=== PATIENT | male | born 1985 | race Caucasian/White ===

== ENCOUNTER 2022-06-08 10:01 | Emergency (ER) | payer BC, SELFPAY ==
[2022-06-08] VITALS (9 sets, daily range): BP systolic 159–168; BP diastolic 95–109; PULSE 73–78; RESP 16–18; TEMP 37; O2SAT 99–100
--- NOTE | ~2022-06-08 | XR_ITS ---
EXAMINATION: XR foot LT min 3V DATE: 06/08/2022 10:43 INDICATION: Left foot pain and ulcer. TECHNIQUE: 4 views of left foot were obtained. COMPARISON: None. FINDINGS: Bone alignment is normal. No fracture. 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 There are enthesophytes at the posterior and plantar as pects of calcaneal tuberosity. There is soft tissue swelling of the forefoot, worst at fifth metatars ophalangeal joint. IMPRESSION: 1. No evidence of osteomyelitis. Reviewed, dictated and finalized at location A.
--- NOTE | 2022-06-08 10:30 | ED.GENADULT ---
HPI - General Adult General Chief complaint: Wound/Laceration Stated complaint: ulcer to foot/infected Time Seen by Provider: 06/08/22 10:05 History of Present Illness HPI narrative: 36-year-old male history of CHF sleep apnea presents to the emergency room for evaluation of a wound to his left foot. Patient states that he has a possibly infected corn to the plantar surface of his left foot below his fifth toe that he has been managing with gentamicin ointment for several days. States he woke up this morning and noticed a painful and red area to the dorsal surface of his foot with centralized indurated abscess. Denies any discharge or drainage. Denies fevers. Was seen at urgent care earlier today, and was told to come to the emergency room for further evaluation. Related Data Home Medications Medication Instructions Recorded Confirmed acetaminophen 325 mg capsule 650 mg PO Q6H PRN 07/13/19 albuterol sulfate 4 mg tablet 4 mg PO QID 07/13/19 Allergies Allergy/AdvReac Type Severity Reaction Status Date / Time No Known Allergies Allergy Unknown Verified 06/08/22 10:45 Review of Systems Review of Systems: CONSTITUTIONAL: Denies fever, chills, or sweats. EYES: Denies visual changes, redness, or discharge. ENT: Denies rhinorrhea, congestion, sore throat, or otalgia. CARDIOVASCULAR: Denies chest pain, palpitations, or edema. RESPIRATORY: Denies cough or dyspnea. GASTROINTESTINAL: Denies abdominal pain, nausea, vomiting, or diarrhea. GENITOURINARY: Denies dysuria or hematuria. SKIN: Denies rash or itching. MUSCULOSKELETAL: See HPI NEUROLOGIC: Denies headache, numbness, dizziness, or weakness. PSYCHIATRIC: Denies anxiety or depression. [facility] Past Medical History Medical History (Updated 06/08/22 @ 11:11 by Chad Reed APRN) CHF (congestive heart failure) DVT prophylaxis Sleep apnea Social History Social History Smoking status: Former smoker Smoking end date: 03/11/17 Alcohol intake: never Exam Narrative: GENERAL: Well-appearing, well-nourished, no physical limitations, and in no acute distress. HEAD: Normocephalic, atraumatic. EYES: Conjunctivae normal, PERRLA and EOMI. ENT: External nose normal, Nares clear, no rhinorrhea or epistaxis. Mucous membranes moist. Oropharynx without tonsillar hypertrophy exudate or other lesions. External ears normal, bilateral TMs normal bilaterally NECK: Supple. No meningeal signs. No adenopathy or masses. No carotid bruits or JVD CHEST: Clear to auscultation. No respiratory distress. No wheezes rales or rhonchi. No tenderness. HEART: Regular rate and rhythm. No murmur heard. Normal peripheral pulses. ABDOMEN: Soft, nontender, nondistended, normal active bowel sounds. : Normal external male/female exam. BACK: No CVA tenderness; No cervical/thoracic/lumbar tenderness, step-offs, bony abnormality; FROM EXTREMITIES: Left foot: Indurated area on the dorsal surface over the fifth MTP joint with surrounding erythema and swelling that extends to the midfoot SKIN: Warm, dry, no rash. No noted wounds NEURO: No focal deficits. Alert and oriented x3. MAEW. CN's II-XI intact bilaterally, normal gait PSYCH: Cooperative. Normal mood and affect. Course Vital Signs Vital signs: Vital Signs Temperature 37.0 C 06/08/22 10:21 Pulse Rate 78 06/08/22 10:21 Respiratory Rate 16 06/08/22 10:21 Blood Pressure 168/103 H 06/08/22 10:21 Pulse Oximetry 100 06/08/22 10:21 Oxygen Delivery Room Air 06/08/22 10:21 Temperature 37.0 C 06/08/22 10:21 Pulse Rate 78 06/08/22 10:21 Respiratory Rate 16 06/08/22 10:21 Blood Pressure 163/109 H 06/08/22 11:17 Pulse Oximetry 99 06/08/22 11:17 Oxygen Delivery Room Air 06/08/22 10:21 Medical Decision Making Vital Signs Vital Signs: Vital Signs Temperature 37.0 C 06/08/22 10:21 Pulse Rate 78 06/08/22 10:21 Respiratory Rate 16 06/08/22 10
[2022-06-08 10:43] LABS: Basophils Percent Auto 0.4 % (0.2-1.2); Eosinophils Absolute Auto 0.1 K/mm3 (0-0.3); Eosinophils Percent Auto 1.3 % (0-4.4); Hematocrit 45.4 % (42.0-52.0); Hemoglobin 15.8 g/dL (14.0-18.0); Immature Granulocyte Absolute 0.02 K/mm3 (0.00-0.031); Immature Granulocyte Percent A 0.3 % (0-0.5); Lymphocytes Absolute Auto 1.95 K/mm3 (0.9-3.2); Lymphocytes Percent Auto 26.1 % (18.3-44.2); Mean Corpuscular HGB Conc 34.8 g/dl (32-36); Mean Corpuscular Hemoglobin 30.3 pg (26-34); Mean Platelet Volume 8.9 fl (7.4-10.4); Monocytes Absolute Auto 0.6 K/mm3 (0.1-0.6); Monocytes Percent Auto 7.9 % (2.6-8.5); Neutrophils Absolute Auto 4.8 K/mm3 (1.3-6.7); Platelet Count Result 265 k/mm3 (150-375); Red Blood Count 5.22 M/mm3 (4.6-6.20); Red Cell Distribution Width 12.8 % (11.5-14.5); White Blood Count 7.5 K/mm3 (4.5-10.0)
[2022-06-08] MEDS: cefTRIAXone 2 GM/NS 100 ML 2 GM/100 ML BAG IVPB (10:57)
[2022-06-08 11:03] LABS: Alanine Aminotransferase 22 U/L (6-50); Albumin Level 4.5 g/dL (3.5-5.1); Alkaline Phosphatase 33 U/L (38-126); Anion Gap 7 mmol/L (8-16); Aspartate Amino Transferase 24 U/L (17-59); Bilirubin,Total 0.8 mg/dL (0.2-1.3); Blood Urea Nitrogen 17 mg/dL (9-20); Calcium 9.2 mg/dL (8.4-10.2); Carbon Dioxide 28 mmol/L (22-30); Chloride 105 mmol/L (98-107); Estimated CRCL calculation 199 ml/min; Estimated Glomerular Filt Rate > 60; Glucose 95 mg/dL (65-110); Potassium 4.1 mmol/L (3.4-5.0); Sodium 140 mmol/L (137-145)
== END 2022-06-08 11:59 | disposition home or self-care (01) ==
PROVIDERS: Emergency Provider Nurse Practitioner Family
DX: L03.116 Cellulitis of left lower limb (principal); I50.9 Heart failure, unspecified; G47.30 Sleep apnea, unspecified; Z86.718 Personal history of other venous thrombosis and embolism
CPT/HCPCS: 36415; 73630; 80053; 83605; 85025; 96365; 99284; J0696

== ENCOUNTER 2022-11-20 10:11 | Outpatient (CLI) | payer BC, SELFPAY ==
[2022-11-20 13:06] LABS: Basophils Percent Auto 0.3 % (0.2-1.2); Eosinophils Absolute Auto 0.1 K/mm3 (0-0.3); Eosinophils Percent Auto 1.7 % (0-4.4); Hematocrit 49.5 % (42.0-52.0); Immature Granulocyte Absolute 0.01 K/mm3 (0.00-0.031); Immature Granulocyte Percent A 0.2 % (0-0.5); Lymphocytes Percent Auto 31.2 % (18.3-44.2); Mean Corpuscular HGB Conc 34.3 g/dl (32-36); Mean Corpuscular Hemoglobin 29.9 pg (26-34); Mean Platelet Volume 9.1 fl (7.4-10.4); Monocytes Absolute Auto 0.9 K/mm3 (0.1-0.6); Monocytes Percent Auto 15.3 % (2.6-8.5); Neutrophils Percent Auto 51.3 % (45.5-73.1); Platelet Count Result 223 k/mm3 (150-375); Red Blood Count 5.69 M/mm3 (4.6-6.20); Red Cell Distribution Width 12.3 % (11.5-14.5); White Blood Count 5.8 K/mm3 (4.5-10.0)
[2022-11-20 13:12] LABS: Alanine Aminotransferase 47 U/L (6-50); Albumin Level 4.6 g/dL (3.5-5.1); Alkaline Phosphatase 32 U/L (38-126); Anion Gap 4 mmol/L (8-16); Aspartate Amino Transferase 51 U/L (17-59); Bilirubin,Total 0.7 mg/dL (0.2-1.3); Blood Urea Nitrogen 15 mg/dL (9-20); Calcium 9.3 mg/dL (8.4-10.2); Carbon Dioxide 33 mmol/L (22-30); Chloride 99 mmol/L (98-107); Cholesterol 169 mg/dL (0-200); Estimated Glomerular Filt Rate > 60; Glucose 78 mg/dL (65-110); HDL Direct 67 mg/dL; Potassium 4.3 mmol/L (3.4-5.0); Sodium 136 mmol/L (137-145); Triglycerides 76 mg/dL (<150)
[2022-11-20 13:23] LABS: LDL Cholesterol Direct 79 mg/dL
[2022-11-20 13:35] LABS: Vitamin D 25 Hydroxy 42.7 ng/mL
== END 2022-11-20 10:12 | disposition home or self-care (01) ==
LOC: ANHGOSHLAB 10:13
PROVIDERS: Visit Provider Family Medicine
DX: Z00.00 Encounter for general adult medical examination without abnormal findings (principal); Z13.220 Encounter for screening for lipoid disorders; I10 Essential (primary) hypertension; E55.9 Vitamin D deficiency, unspecified; E53.8 Deficiency of other specified B group vitamins; I50.9 Heart failure, unspecified
CPT/HCPCS: 36415; 80053; 80061; 82306; 82607; 83735; 84443; 85025

== ENCOUNTER 2023-06-17 10:42 | Outpatient (CLI) | payer BC, SELFPAY ==
--- NOTE | ~2023-06-17 | US_ITS ---
EXAMINATION: US scrotum doppler DATE: 06/17/2023 11:22 INDICATION: Other specified disorders of the male genitalia. Left testicular swelling. TECHNIQUE: Grayscale and Doppler ultrasound images of the testes were obtained. COMPARISON: None. FINDINGS: The right testis measures 4.3 x 2.7 x 2.7 cm. The left testis measures 3.9 x 2.3 x 2.5 cm. There is increased vascular flow to left testis. The right epididymis is normal with normal vascular flow. The left epididymis demonstrates increased vascular flow. There is a small left hydrocele. IMPRESSION: 1. Left-sided epididymoorchitis. 2. Small left hydrocele. Reviewed, dictated and finalized at location A.
== END 2023-06-17 10:43 ==
PROVIDERS: PCP Family Medicine; Visit Provider Family Medicine
DX: N50.89 Other specified disorders of the male genital organs (principal); N43.3 Hydrocele, unspecified; N45.3 Epididymo-orchitis
CPT/HCPCS: 76870; 93976

== ENCOUNTER 2023-06-17 11:02 | Outpatient (CLI) | payer BC, SELFPAY ==
[2023-06-17 20:51] LABS: CRP 0.5 mg/dL (<1.0)
[2023-06-17 20:53] LABS: NT Pro B Type Natriuretic Pept < 20 pg/mL (19.9-100)
[2023-06-17 21:18] LABS: Alanine Aminotransferase 26 U/L (6-50); Albumin Level 4.5 g/dL (3.5-5.1); Alkaline Phosphatase 31 U/L (38-126); Anion Gap 4 mmol/L (4-12); Aspartate Amino Transferase 33 U/L (17-59); Bilirubin,Total 1.3 mg/dL (0.2-1.3); Blood Urea Nitrogen 18 mg/dL (9-20); Calcium 9.2 mg/dL (8.4-10.2); Carbon Dioxide 30 mmol/L (22-30); Chloride 104 mmol/L (98-107); Estimated Glomerular Filt Rate > 60; Glucose 88 mg/dL (65-110); Potassium 4.6 mmol/L (3.4-5.0); Sodium 138 mmol/L (137-145)
[2023-06-20 07:24] LABS: Lipoprotein A 16 nmol/L (<75)
== END 2023-06-17 11:03 | disposition home or self-care (01) ==
LOC: ANHGOSHLAB 11:04
PROVIDERS: PCP Family Medicine; Visit Provider Family Medicine
DX: Z79.899 Other long term (current) drug therapy (principal); I10 Essential (primary) hypertension; E78.5 Hyperlipidemia, unspecified; Z13.9 Encounter for screening, unspecified; M54.9 Dorsalgia, unspecified; G47.30 Sleep apnea, unspecified; I50.32 Chronic diastolic (congestive) heart failure; Z20.89 Contact with and (suspected) exposure to other communicable diseases; Z87.891 Personal history of nicotine dependence
CPT/HCPCS: 36415; 80053; 83695; 83880; 86140